=== PATIENT | female | born 1995 | race Caucasian/White ===

== ENCOUNTER 2017-08-16 03:52 | Inpatient (IN) | payer MEDICAID, OTHER ==
[~2017-08-16] VITALS: Ht 152.4 cm; Wt 61.6 kg
[~2017-08-16 03:52] MED LIST: CALC1TAB98 PO; FERR240T9 PO; IBUP-1542 PO; PNV1TABL91 PO
[2017-08-16 04:18] VITALS: Ht 152.4 cm; Wt 61.6 kg
[2017-08-16 04:19] VITALS: BP 117/74; PULSE 93; RESP 18
--- NOTE | 2017-08-16 04:53 | TRIAGE ---
OB Triage Datetime Report Generated by CPN: 08/16/2017 04:53 Datetime: 08/16/2017 04:37 Stage of : OB Triage Datetime: 08/16/2017 04:35 Stage of : OB Triage Datetime: 08/16/2017 04:27 Vaginal Exam Dilatation (cms): 3.5 Effacement (%): 70 Station: -3 Exam By: [facility] Vaginal Bleeding: None Cervix, Consistency: Moderate Cervix, Position: Posterior Presentation 'A': Cephalic Datetime: 08/16/2017 04:15 Assessment Type: Triage Maternal Assessment Level of Consciousness: Fully Conscious DTR's/Clonus: DTRs 2+; No Clonus Headache: Denies Blurred Vision: No Respiratory Effort: Unlabored Breath Sounds, Left: Clear and Equal Breath Sounds, Right: Clear and Equal Nausea/Vomiting: Denies RUQ Epigastric Pain: Denies Lower Extremities Edema: None Degree: None Upper Extremities Edema: None Degree: None Facial Edema: None Fall Risk Assessment History of Falling: (0) No Secondary Diagnosis: (0) No Ambulatory Aid: (0) Bedrest/Nurse Assist IV Therapy: (0) No Gait: (0) Normal/Bedrest/Immobile Mental Status: (0) Oriented to Own Ability Fall Score: 0 Fall Risk Score Definition: No Risk: No action required Datetime: 08/16/2017 04:10 EGA: 38.3 Arrived By: Wheelchair Arrived From: Home Chief Complaint: ucs since 2199 Movement: Present Contractions: Regular Time Contractions Began: 08/16/2017 22:00 Contractions: Q3-5MIN Rupture of Membranes: Denies Vaginal Bleeding: None Vaginal Discharge: Denies Recent Sexual Intercouse: Denies Abdominal Trauma: Not Applicable Patient Complaints: Contractions; Back Pain Additional Patient Complaints: pt states she had gdm with past , denies gdm with this pre gnancy Initial Plan: VS, EFM, SVE Datetime: 08/16/2017 04:09 Time of Arrival: 08/16/2017 03:45
[2017-08-16] MEDS ORDERED: CARBOPROST 250 MCG INJ IM PRN ×2 (05:00→16:30)
[2017-08-16] MEDS ORDERED: OXYTOCIN 30 UNITS/LR 500 ML IV PRN ×2 (05:00→16:30)
[2017-08-16] MEDS ORDERED: LIDOCAINE 1% (MPF) 30 ML INJ INJ PRN (05:00)
[2017-08-16] MEDS ORDERED: IBUPROFEN 600 MG TAB PO PRN (05:00)
[2017-08-16] MEDS ORDERED: METHYLERGONOVINE 0.2 MG INJ IM PRN ×2 (05:00→16:30)
[2017-08-16] MEDS ORDERED: OXYTOCIN 30 UNITS/LR 500 ML IV SCH ×3 (05:00→09:30)
[2017-08-16] MEDS ORDERED: AMPICILLIN 2 GM/NS (PMX) 100 ML IV ONE (05:00)
[2017-08-16] MEDS ORDERED: BUTORPHANOL 2 MG INJ IV PRN ×2 (05:00)
[2017-08-16] MEDS ORDERED: MISOPROSTOL 200 MCG TAB PR PRN ×2 (05:00→16:30)
[2017-08-16] MEDS ORDERED: LACTATED RINGER'S 1,000 ML IV PRN (05:00)
[2017-08-16] MEDS ORDERED: HYDROCODONE/APAP (5/325) TAB PO PRN ×2 (05:00→16:30)
[2017-08-16] MEDS: LACTATED RINGER'S 1,000 ML IV SCH ×2 (05:20→05:48)
[2017-08-16] MEDS ORDERED: FENTAnyl 2MCG/ML-ROPIV 0.2% 100 ML ONE (05:35)
[2017-08-16 05:45] LABS: BASOPHILS % 0.3 % (0.0-2.0); EOSINOPHILS # 0.1 10^3/ul (0.0-0.5); EOSINOPHILS % 0.7 % (0.0-7.0); HEMOGLOBIN 10.2 g/dl (12.0-16.0); LYMPHOCYTES # 2.8 10^3/ul (0.8-2.9); LYMPHOCYTES % 24.7 % (15.0-51.0); MEAN CORPUSCULAR HEMOGLOBIN 28.4 pg (29.0-33.0); MEAN CORPUSCULAR HGB CONC 31.9 g/dl (32.0-37.0); MEAN CORPUSCULAR VOLUME 89.1 fl (82.0-101.0); MEAN PLATELET VOLUME 9.7 fl (7.4-10.4); MONOCYTES % 8.9 % (0.0-11.0); NEUTROPHIL # 7.5 10^3/ul (1.6-7.5); NEUTROPHILS % 64.8 % (39.0-77.0); PLATELET COUNT 298 10^3/UL (140-415); RED BLOOD COUNT 3.59 10^6/ul (4.20-5.40); RED CELL DISTRIBUTION WIDTH 13.5 % (11.5-14.5); WHITE BLOOD COUNT 11.5 10^3/ul (4.8-10.8)
[2017-08-16 05:55] LABS: INR 0.92; PROTIME 12.4 Sec (12.2-14.2)
[2017-08-16] MEDS ORDERED: NALOXONE (0.4 MG/ML) INJ IV PRN (06:00)
[2017-08-16] MEDS ORDERED: FENTAnyl 2MCG/ML-ROPIV 0.2% 100 ML BAG EPI SCH (06:00)
[2017-08-16] MEDS ORDERED: ONDANSETRON 4 MG INJ IV PRN ×2 (06:00→16:30)
[2017-08-16] MEDS ORDERED: DIPHENHYDRAMINE 50 MG INJ IV PRN (06:00)
[2017-08-16 07:44] LABS: BARBITURATES Negative (NEGATIVE); BENZODIAZEPINES Negative (NEGATIVE); CANNABINOIDS Negative (NEGATIVE); COCAINE Negative (NEGATIVE); OPIATES Negative (NEGATIVE)
[2017-08-16] MEDS: AMPICILLIN 1 GM/NS (PMX) 50 ML IV SCH ×2 (09:22→13:20)
--- NOTE | 2017-08-16 15:22 | HP ---
Date/Time of Note Date/Time of Note DATE: 08/16/17 TIME: 15:21 OB - History Hx of Present Free Text/Dictation ADMITTED AT 38.3 WEEKS GESTATION IN LABOR Estimated Due Date: Aug 20, 2017 : 3 Para: 2 Care: Good Care Obstetrical Complications: None Past Family/Social History * Past Medical, Surgical, Family and Obstetric Histories reviewed from chart. Rubella: immune RPR/VDRL: Negative GBS Status: Negative HBsAG: Negative OB Admission Exam Vital Signs Vital Signs Vital Signs Date Time Temp Pulse Resp B/P Pulse Ox O2 Delivery O2 Flow Rate FiO2 08/16/17 04:19 98.1 93 18 117/74 Room Air Physical Exam HEENT: WNL Heart: Rhythm Normal Lungs: Clear, Equal Abdomen: WNL Extremities: Normal Reflexes: Normal Cervical Dilatation: 4cm Effacement: 75% Station: -1 Membranes: Intact Accelerations: Accelerations Present Decelerations: No Decelerations Varibility: Moderate Contractions on Admission: < 5 Minutes Apart Intensity: Mild Last 72 hours Lab Results CBC & BMP 08/16/17 05:14 DRE IBRAHIM MD Aug 16, 2017 15:22
[2017-08-16] MEDS ORDERED: LANOLIN 7 GM TUBE TOP PRN (16:30)
[2017-08-16] MEDS ORDERED: DIBUCAINE 1% 30 GM OINT PR PRN (16:30)
[2017-08-16] MEDS ORDERED: DIPHENHYDRAMINE 25 MG CAP PO PRN (16:30)
[2017-08-16] MEDS ORDERED: ACETAMINOPHEN 325 MG TAB PO PRN ×2 (16:30)
--- NOTE | 2017-08-16 16:36 | LDN ---
Date/Time of Note Date/Time of Note DATE: 08/16/17 TIME: 16:33 Delivery Summary 38.3 weeks spontaneous vaginal delivery under epidural anesthesia baby boy 9 Weeks of Gestation 38.3 Placenta Delivered: Spontaneously Meconium: none Episiotomy: No Laceration repair: left labial laceration repaired Anesthesia type: Epidural Sponge & Needle done & correct: Yes All needle counts correct: Yes Any foreign bodies felt in the: No Problems: Infant Delivery Information Sex Infant Sex: male Apgars 1 Minute: 9 5 Minute: 9 Suctioning Nose & mouth suctioned at prosper: Yes Umbilical Cord Umbilical cord with: 3 Vessels Cord presentations: nuchal cord Nuchal cord present X: 1 Cord Blood was obtained: Yes Mother & Baby Disposition Disposition Mom & Baby to Maternity; Good: Yes DRE IBRAHIM MD Aug 16, 2017 16:36
[2017-08-16] MEDS: OXYTOCIN 30 UNITS/LR 500 ML IV SCH ×2 (17:20→21:11)
[2017-08-16] MEDS: IBUPROFEN 800 MG TAB PO SCH ×2 (17:58→23:45)
[2017-08-16 19:00] VITALS: BP 125/79; PULSE 71; RESP 16
[2017-08-16 20:00] VITALS: BP 118/58; PULSE 89; RESP 18
[2017-08-16] MEDS: SENNA/DOCUSATE NA (8.6MG/50MG) TAB PO SCH (21:11)
[2017-08-17 00:09] VITALS: BP 108/56; PULSE 84; RESP 18
[2017-08-17 04:00] VITALS: BP 109/55; PULSE 80; RESP 18
[2017-08-17] MEDS: IBUPROFEN 800 MG TAB PO SCH ×3 (05:45→18:08)
[2017-08-17 08:25] VITALS: BP 106/58; PULSE 75; RESP 19
[2017-08-17 09:58] LABS: BASOPHIL # 0.1 10^3/ul (0.0-0.1); BASOPHILS % 0.4 % (0.0-2.0); EOSINOPHILS # 0.1 10^3/ul (0.0-0.5); EOSINOPHILS % 0.7 % (0.0-7.0); HEMATOCRIT 28.8 % (37.0-47.0); HEMOGLOBIN 8.9 g/dl (12.0-16.0); LYMPHOCYTES # 2.6 10^3/ul (0.8-2.9); LYMPHOCYTES % 19.3 % (15.0-51.0); MEAN CORPUSCULAR HEMOGLOBIN 28.2 pg (29.0-33.0); MEAN CORPUSCULAR HGB CONC 30.9 g/dl (32.0-37.0); MEAN CORPUSCULAR VOLUME 91.1 fl (82.0-101.0); MEAN PLATELET VOLUME 9.5 fl (7.4-10.4); MONOCYTE # 1.3 10^3/ul (0.3-0.9); MONOCYTES % 9.8 % (0.0-11.0); NEUTROPHIL # 9.3 10^3/ul (1.6-7.5); NEUTROPHILS % 69.1 % (39.0-77.0); PLATELET COUNT 240 10^3/UL (140-415); RED BLOOD COUNT 3.16 10^6/ul (4.20-5.40); RED CELL DISTRIBUTION WIDTH 13.4 % (11.5-14.5); WHITE BLOOD COUNT 13.5 10^3/ul (4.8-10.8)
[2017-08-17] MEDS: SENNA/DOCUSATE NA (8.6MG/50MG) TAB PO SCH ×2 (11:22→21:01)
[2017-08-17 12:23] VITALS: BP 105/51; PULSE 85; RESP 18
--- NOTE | 2017-08-17 14:17 | PN ---
Date/Time of Note Date/Time of Note DATE: 08/17/17 TIME: 14:17 OB Subjective Subjective Subjective doing well afebrile uterus contracted lochia normal no complaints OB Objective HEENT: WNL Heart: Rhythm Normal Lungs: Clear, Equal Abdomen: WNL Extremities: Normal Reflexes: Normal DRE IBRAHIM MD Aug 17, 2017 14:17
[2017-08-17 16:30] VITALS: BP 98/55; PULSE 78; RESP 18
[2017-08-17] MEDS: HYDROCODONE/APAP (5/325) TAB PO PRN ×2 (16:43→22:01)
[2017-08-17 20:00] VITALS: BP 105/65; PULSE 84; RESP 18
[2017-08-18] MEDS: IBUPROFEN 800 MG TAB PO SCH ×3 (00:44→11:51)
[2017-08-18 04:00] VITALS: BP 105/55; PULSE 84; RESP 19
[2017-08-18 09:00] VITALS: BP 100/54; PULSE 72; RESP 19
[2017-08-18] MEDS ORDERED: DIPHTH/TET/ACEL PERTUSS (ADULT) 0.5 ML VIAL IM* ONE (09:00)
[2017-08-18] MEDS ORDERED: VARICELLA VACCINE LIVE/PF 1,350 UNIT/0.5 ML ML SC* ONE (09:00)
[2017-08-18] MEDS ORDERED: MEASLES,MUMPS,RUBELLA VACCINE INJ SC* ONE (09:00)
[2017-08-18] MEDS: HYDROCODONE/APAP (5/325) TAB PO PRN (09:05)
[2017-08-18] MEDS: SENNA/DOCUSATE NA (8.6MG/50MG) TAB PO SCH (09:05)
--- NOTE | 2017-08-18 11:43 | PD.PPDC ---
ACCOUNT RECEIVABLE ASSOCIATE Discharge Instruction Condition Patient Condition: Good Activity/Restrictions Activity: Normal Activity May Shower Restrictions: No Exercising No Lifting No Driving No Sexual Activity Nothing in the Vagina No [place] No Tampons, douche Follow-up Follow-up with Physician: 6, Week/Weeks Return to clinic for [employer]IAN [employer]CH[employer]IC Instructions: Fever greater than 101 Chills Worsening abdominal pain Excessive Vaginal Bleeding More than 2 pads per hour Unable to tolerate diet OB Instructions: Breast Tenderness Depression Blurried Vision Headache Surgical Instructions: Incisional Drainage Incisional Redness DRE IBRAHIM MD Aug 18, 2017 11:43
--- NOTE | 2017-08-18 11:45 | DS ---
Date/Time of Note Date/Time of Note DATE: 08/18/17 TIME: 11:44 Obstetrical Discharge Record Final Diagnosis Final Diagnosis: Term delivered Vaginal Delivery Obstetrical Delivery: Spontaneous Complications Augmentation: Yes Condition on Discharge Physical Assessment Voiding: Yes Bowel Movement: Yes Breast: Soft, non-tender, Filling Fundus: Firm Calf Tenderness: No Patient Condition: Good DRE IBRAHIM MD Aug 18, 2017 11:45
== END 2017-08-18 18:31 | disposition home or self-care (01) | DRG 775 ==
LOC: OBT 03:52 → L-D 03:53 → OBT 04:45 → L-D 04:46 → PP1 18:19
PROVIDERS: ADMIT Obstetrics & Gynecology; ATTEND Obstetrics & Gynecology
PROC: 10E0XZZ Delivery of Products of Conception, External Approach (ICD-10-PCS; principal; 2017-08-16)
DX: O69.81X0 Labor and delivery complicated by cord around neck, without compression, not applicable or unspecified (principal); Z37.0 Single live birth; Z3A.38 38 weeks gestation of pregnancy
CPT/HCPCS: 62319; 80307; 85025; 85610; 85730; 86592; 86900; 86901; 87340; 90715; 90716; G0463; J0290; J1200; J2210; J2405; J2590; J3010; J7120